=== PATIENT | male | born 1975 | race Two or more races ===

== ENCOUNTER 2019-12-20 08:07 | Emergency (ER) | payer SELFPAY ==
[~2019-12-20] VITALS: Ht 172.7 cm; Wt 86.9 kg
--- NOTE | 2019-12-20 09:10 | NUR ---
NOTED SWELLING OF THE R HAND AND FOOT PT REPORTS THIS STARED TWO DAYS AGO WITH INCREASING PAIN
[2019-12-20 09:46] LABS: BASOPHILS % (AUTO) 1 % (0-1); EOSINOPHILS % (AUTO) 2 % (1-7); LYMPHOCYTES % (AUTO) 15 % (22-44); MEAN CORPUSCULAR HEMOGLOBIN 26.4 pg (27.5-34.5); MEAN PLATELET VOLUME 7.6 fL (7.4-10.4); MONOCYTES % (AUTO) 11 % (2-9); NEUTROPHILS % (AUTO) 72 % (42-75); PLATELET COUNT 309 x10^3/uL (130-400); RED BLOOD COUNT 6.56 x10^6/uL (4.38-5.82); RED CELL DISTRIBUTION WIDTH 13.2 % (9.4-14.8)
[2019-12-20 09:55] LABS: MD NO
[2019-12-20 09:58] LABS: ALBUMIN 4.2 g/dL (3.4-5.0); CALCIUM 10.1 mg/dL (8.5-10.1); CREATININE 1.12 mg/dL (0.7-1.3)
[2019-12-20 10:17] LABS: ALANINE AMINOTRANSFERASE 31 U/L (12-78); ALKALINE PHOSPHATASE 94 U/L (45-117); ANION GAP 5 mmol/L (5-15); BILIRUBIN,TOTAL 0.8 mg/dL (0.2-1.0); CHLORIDE 101 mmol/L (98-107)
[2019-12-20] MEDS ORDERED: KETOROLAC 60 MG/2 ML ONE (10:35)
--- NOTE | 2019-12-20 10:54 | NUR ---
REPORT FROM NAHUM VIEIRA.
[2019-12-20] MEDS ORDERED: KETOROLAC 60 MG/2 ML IM ONE (11:00)
[2019-12-20 11:12] VITALS: BP 137/86
== END 2019-12-20 11:26 | disposition home or self-care (01) ==
LOC: ED 09:48
DX: M13.0 Polyarthritis, unspecified (principal); M79.671 Pain in right foot; M79.672 Pain in left foot; M79.641 Pain in right hand; M79.89 Other specified soft tissue disorders
CPT/HCPCS: 36415; 73130; 73630; 80053; 84550; 85025; 85651; 96372; 99284; J1885